=== PATIENT | male | born 1965 | race Caucasian/White ===

== ENCOUNTER → 2023-10-05 11:07 | Outpatient (REF) | payer OTHER, SELFPAY | LOC: RAD 11:07 | PROVIDERS: ATTENDING PHYSICIAN Surgery Vascular Surgery | DX: I73.9 Peripheral vascular disease, unspecified (principal) | CPT/HCPCS: 93922; 93925 ==

== ENCOUNTER 2023-12-06 13:33 | Inpatient (IN) | payer OTHER, SELFPAY ==
[2023-12-06] VITALS (10 sets, daily range): BP systolic 156–186; BP diastolic 77–95
[2023-12-06 08:46] LABS: Urine Albumin Negative (Neg - Trace); Urine Bilirubin 1+ (Negative); Urine Character Clear (Clear); Urine Color Yellow; Urine Glucose 3+ (Negative); Urine Ketone 1+ (Negative); Urine Leukocyte Negative (Negative); Urine Nitrite Negative (Negative); Urine Occult Blood Negative (Negative); Urine Urobilinogen Negative (Neg - 1+)
[2023-12-06 08:48] LABS: % Basophils 0.2 % (0-2); % Eosinophils 0.6 % (0-6); % Immature Granulocytes 0.1 % (0-0.5); % Monocytes 5.7 % (1.7-9.3); % Neutrophils 79.4 % (42.2-75.2); Absolute Eosinophils 0.1 10^3/uL (0-0.7); Absolute Lymphocytes 1.3 10^3/uL (1.2-3.4); Absolute Monocytes 0.5 10^3/uL (0.1-0.6); Absolute Neutrophils 7.4 10^3/uL (1.4-6.5); Hematocrit 45.5 % (39.0-52.0); Hemoglobin 15.6 g/dL (13.0-18.0); Mean Corp Hgb Conc. 34.3 g/dL (33.0-37.0); Mean Corpuscular Hgb 30.4 pg (27.0-31.0); Mean Corpuscular Volume 88.7 fL (80.0-94.0); Mean Platelet Volume 11.1 fL (7.4-10.4); Nucleated Red Blood Cells % 0 % (-); Platelet Count 139 10^3/uL (130-400); Red Blood Cell Count 5.13 10^6/uL (4.70-6.10); White Blood Cell Count 9.3 10^3/uL (4.8-10.8)
[2023-12-06 09:00] LABS: ALT (SGPT) 18 U/L (0-50); AST (SGOT) 29 U/L (17-59); Albumin 4.4 g/dl (3.5-5.0); Alkaline Phosphatase 113 U/L (38-126); Blood Urea Nitrogen 24 mg/dl (9-20); Calcium 9.7 mg/dl (8.4-10.2); Carbon Dioxide 28 mmol/L (22-30); Chloride 104 mmol/L (98-107); Glucose 117 mg/dl (70-99); Potassium 4.3 mmol/L (3.5-5.1); Sodium 140 mmol/L (135-145); eGFR > 60.00
[2023-12-06] MEDS: OXYCONTIN (CONTROLLED RELEASE) 15 MG PO (09:27)
[2023-12-06 09:37] LABS: Lipase 43 U/L (23-300)
[2023-12-06 09:53] LABS: COVID-19 Antigen Negative (Negative)
--- NOTE | 2023-12-06 11:33 | ED.GENMED ---
History of Present Illness
General
Chief Complaint: Weakness
Source: patient
Exam Limitations: none
Time Seen by Provider: 12/06/23 08:05
Travel History
Have you had any contact with someone who has COVID-19?: No
Do you have any symptoms of coronavirus? Fever > 100 degrees, chills, cough, shortness of breath, sore throat, loss of taste or smell, muscle aches, or headache?: No
History of Present Illness
History of Present Illness:
58-year-old male progressive weakness over 3 to 4 days. Severe fatigue. Some cognitive issues. Denies significant cough shortness of breath abdominal pain or other complaints. Does note bilateral increased leg swelling.
Past History
Past History
ED Past Medical History: Arrthythmia (Atrial fib), CAD, CHF, CVA (residual right-sided weakness. Appears to have a thalamic bleed.), HTN, Hypercholesterolemia, Psychiatric (MDD), Other (Cellulitis, Paraplegic, Spinal stenosis, thalamic bleed 2004,
seizure disorder/wheelchair-bound, chronic back pain narcotic dependent) and Other (Receiving palliative care)
ED Past Surgical History: Cardiac (Stent) and Other (Spinal fusion that falled, bone taken from L hip for surg.)
Social History
Tobacco: Former smoker
Alcohol: None
Personal:
Living: with family
Employment: Disabled
Family History
Family History: Negative Diabetes
Review of Systems
Review of Systems
All Other Systems: Not applicable
Constitutional: Denies fever
Respiratory: Reports no symptoms
Cardiac: Reports no symptoms
ABD/GI: Reports no symptoms
Phy Exam
Physical Exam
Physical Exam:
GENERAL: Alert and oriented in no apparent distress. Generally tired and weak appearing
EYE: Orbits normal.
NECK: Supple, no significant adenopathy.
ENT: Pharynx without erythema
CARDIAC:Mildly irregular pacer
LUNGS: Clear breath sounds,normal
ABDOMEN: Soft, without focal tenderness or distention
NEUROLOGICAL: Alert and oriented , lower extremity paraplegia can wiggle toes bilaterally
SKIN: Warm and dry, stasis dermatitis to both lower extremities with possible cellulitis bilaterally
MUSCULOSKELETAL: Significant pitting edema bilaterally
PSYCH: Normal and appropriate interaction.
Course
Orders/Labs/Results
Orders:
Orders
12/06/23 08:01
Electrocardiogram (*1) Urgent
Reason for Study: Fatigue / Weakness
EKG- Treatment ONCE
12/06/23 08:39
CMP [Comprehensive Metabolic Panel] Urgent
Complete Blood Count/With Diff Urgent
Lipase Urgent
Comment: ADD ON
TSH Reflex To Free T4 Urgent
Urinalysis Reflex To Culture Urgent
Date Specimen was Collected: 12/06/23
Time Specimen was Collected: 08:22
12/06/23 08:41
CT Head W/o Iv Contrast Urgent
Comment:
Reason For Exam: Change in mental status
Cardiac Monitoring- Treatment ONCE
IV Insert/Care/Rem.- Treatment PRN
Pulse Ox/cont/shift [RESP] Stat
Quantity: 1
12/06/23 09:19
Add On- LAB Urgent
Tests Added?: tsh reflex t4,lipase
COVID-19 Antigen Urgent
Source: Nasal Swab
Influenza A+B Rapid Molecular Urgent
JYOTSNA Source: Nasal Swab
Specimen Description:
12/06/23 09:20
Oxycodone Controlled Release [Oxycontin (Controlled Release)] 15 mg PO NOW STA
12/06/23 11:30
CXR2 [CR Chest - 2 Views ] Urgent
Comment:
Reason For Exam: cough weak
12/06/23 11:51
CeFAZolin 2 GRAM [Ancef] 2 grams in 10 ml IV NOW
12/06/23 12:17
Blood Culture Q30M
JYOTSNA Source: Blood/Venous
Specimen Description:
12/06/23 12:26
Blood Culture Q30M
JYOTSNA Source: Blood/Venous
Specimen Description:
Abnormal Lab Results
12/06/23
08:39
MPV 11.1 H fL
(7.4-10.4)
Absolute Neuts (auto) 7.4 H 10^3/uL
(1.4-6.5)
Neutrophils % 79.4 H %
(42.2-75.2)
Lymphocytes % 14.0 L %
(20.5-51.1)
BUN 24 H mg/dl
(9-20)
Glucose 117 H mg/dl
(70-99)
Total Bilirubin 2.0 H mg/dl
(0.2-1.3)
Urine Ketones 1+ A
(Negative)
Urine Bilirubin 1+ A
(Negative)
Urine Glucose 3+ A
(Negative)
12/06/23 08:39
12/06/23 08:39
Vital Signs
Initial and Last Documented VS:
Initial Vital Signs
Temp Resp
98.5 F 20
12/06/23 08:09 12/06/23 08:09
Last Documented Vital Signs
Temp Pulse Resp BP Pulse Ox
98.5 F 66 13 186/85 95
12/06/23 08:09 12/06/23 12:30 12/06/23 12:30 12/06/23 12:00 12/06/23 12:30
MDM/Problems Addressed
Differential Diagnosis Includes:
Change in mental status weakness. Only clinical finding is possible cellulitis. Discussed with hospitalist.
*Radiology
Radiology exam reviewed: radiology read reviewed (Old CVA)
*Pulse Oximetry
Patient hypoxic: no
*EKG
Interpreted by ED Provider?: Yes
Interpretation: abnormal
Comparison EKG: no changes
Heart Rate: 70
Rate: normal
Rhythm: a-fib
[place]: left axis deviation
Interval: normal interval
QRS Pattern: right bundle branch block
Ischemia: non-specific ST changes
*Machine Inker Interpretation
Rate: normal
Interpretation: abnormal
Heart Rate: 72
Rhythm: a-fib
*Critical Care Note
Total Time (30-74mins, 75-104mins- exclusive of procedures): Not Applicable
ED Attending Note
-
Portions of this chart may have been created with voice recognition software.� Occasional wrong word or��sound alike� substitutions may have occurred due to the inherent limitations of voice recognition software.
Discharge Plan
Departure
Patient Disposition: Admit
Date of Disposition: 12/06/23
Time of Disposition: 10:24
Presentation/result/management discussed w/ accepting MD/DO: Hospitalist
Discharge Problem:
Change in mental status/weakness, Possible cellulitis, Lower extremity edema
Prescriptions:
No Action
oxycodone 15 MG tablet
15 mg PO Q4H
morphine 30 MG tablet extended release
30 mg PO Q8H
Jardiance 10 mg Tablet
10 mg PO DAILY@1300
furosemide 40 MG tablet
40 mg PO DAILY
cyanocobalamin (vitamin B-12) 1,000 mcg Tablet
1,000 mcg PO DAILY 30 Days Qty: 30 0RF
clopidogrel 75 mg Tablet
75 mg PO DAILY Qty: 30 2RF
Eliquis 5 mg tablet
5 mg PO BID
brinzolamide [Azopt] 1 % Drops,Suspension
1 drp BOTH EYES BID
Theragen Tablet
1 tab PO DAILY
atorvastatin 40 mg tablet
40 mg PO DAILY@1300
metformin 500 mg Tablet Extended Release 24 Hr
500 mg PO QPM Qty: 30 0RF
cholecalciferol (vitamin D3) 50 mcg (2,000 unit) Tablet
50 mcg PO DAILY Qty: 30 0RF
Referrals:
UNKNOWN - PT DOES,NOT KNOW [Family Provider] -
Interventions
Interventions:
*Risk Screen - Suicide Last Done: 12/06/23 08:11
*General Assessment Last Done: 12/06/23 08:11
*Neglect/Abuse Screening Last Done: 12/06/23 08:11
ED- Fall Risk Assessment Last Done: 12/06/23 08:18
ED- Cardiac Assessment Last Done: 12/06/23 08:20
ED- Neurological Assessment Last Done: 12/06/23 08:19
ED- Pulmonary Assessment Last Done: 12/06/23 08:44
Discharge Date and Time
Print Language: ALBANIAN
[2023-12-06] MEDS: ANCEF 10 IV ×2 (12:23→20:02)
[2023-12-06 13:31] LABS: TSH Reflex To Free T4 0.87 uIU/ml (0.47-4.68)
--- NOTE | 2023-12-06 15:10 | WOUNDNOTE ---
R FOOT/2ND TOE (DORSAL)
--- NOTE | 2023-12-06 15:10 | WOUNDNOTE ---
L 2ND TOE (DORSAL)
--- NOTE | 2023-12-06 15:34 | WOUNDNOTE ---
[facility] RN note: Patient admitted with cellulitis. Patient lives at home with his and son. He applies his own knee high Rojas wraps at home. He stated he has a hospital bed without an air mattress at home. He has an electric wheelchair with a cushion
he doesn't like at home.
See H&P for complete history.
PMH: a fib, CAD, CHF, CVA with R sided weakness, HTN, cellulitis, paraplegic, spinal stenosis, seizure disorder, WC bound, chronic back pain narcotic dependent, cardiac stent, failed spinal fusion, former smoker, stasis dermatitis,
lymphedema,08/30/22 bilateral aortoiliac angiogram and balloon dilation, cholecystectomy. 10/05/23 arterial Doppler R YASMANY 1.05, R toe 1.40; L YASMANY .83, L toe .68. 05/23/22 venous ultrasound nonocclusive thrombosis R peroneal vein. Patient on Plavix.
Patient saw Dr. Locke as an outpatient on 10/05/23 whose note mentions lymphedema, continue compression and leg elevation, follow up in 1 year.
Wound Location and type/assessment: Patient admitted with: Bilateral dorsal 2nd toe dry scabbed abrasions (L>R), diffuse erythema le's, L upper joseph dry small scabbed abrasion. +3 LE edema. R pedal pulse palpable. L pedal pulse easily heard via
portable Doppler. Skin on heels blanchable red.
Appetite: fair-good.
Pressure redistribution devices in place: Pieceableax. RN Ann-Marie to coordinate switching bed to a [facility] air bed. Bed tech Juan notified who brought up bed.
Plan: Moisture lotion applied to le's. No sting barrier wipe applied to toe abrasions. Updated Dr. Chinchilla including LE picture who approved skin care, air mattress, soft heel relief boots as tolerated, and bilateral knee high Rojas wraps as tolerated.
Defer to hospitalist if LE venous Doppler study to r/t DVT indicated. Patient on Plavix. Bilateral knee high Rojas wraps and bilateral TruVue lite heel relief boots applied. Bariatric air chair cushion placed under heels/boots. Instructed patient
pressure injury prevention measures.
Updated NARINDER Jacobsen.
Care plan to be updated and will follow as needed.
Note to case management of equipment requested for discharge: VN if not already in place.
Recommend follow up at wound care center if needed upon discharge.
--- NOTE | 2023-12-06 15:43 | CM ---
Patient seen bedside.
IA completed.
Hx CVA, WC bound at baseline independent with all transfers and personal care tasks.
Patient does not drive or work.
Lives with spouse and mother in law.
Patient lives in a 2 story home with ramp to enter, he has a 1st floor set up.
patient has had [facility] in the past and would like to resume.
Patient was in skilled rehab and [facility] in the past.
PCP: unknown
Pharmacy: [facility]
Plan: home with possible VN needs.
[2023-12-06] MEDS: MS CONTIN (EXTENDED RELEASE) 30 MG PO ×2 (17:17→23:01)
[2023-12-06] MEDS: ROXICODONE 15 MG PO ×2 (17:20→21:18)
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
[2023-12-06] MEDS: AZOPT 1% OPHTHALMIC SUSPENSION 1 DROP BOTH EYES (20:01)
[2023-12-06] MEDS: ELIQUIS 5 MG PO (20:01)
[2023-12-07] VITALS (8 sets, daily range): BP systolic 146–197; BP diastolic 77–94
[2023-12-07] MEDS: ROXICODONE 15 MG PO ×6 (01:24→23:53)
[2023-12-07] MEDS: ANCEF 10 IV ×3 (02:50→19:45)
[2023-12-07 07:59] LABS: Hematocrit 43.7 % (39.0-52.0); Mean Corp Hgb Conc. 34.3 g/dL (33.0-37.0); Mean Corpuscular Hgb 30.2 pg (27.0-31.0); Mean Corpuscular Volume 88.1 fL (80.0-94.0); Mean Platelet Volume 11.3 fL (7.4-10.4); Platelet Count 130 10^3/uL (130-400); Red Blood Cell Count 4.96 10^6/uL (4.70-6.10); Red Cell Dist. Width 12.1 % (11.5-14.5); White Blood Cell Count 8.9 10^3/uL (4.8-10.8)
[2023-12-07 08:22] LABS: ALT (SGPT) 13 U/L (0-50); AST (SGOT) 23 U/L (17-59); Albumin 3.6 g/dl (3.5-5.0); Alkaline Phosphatase 105 U/L (38-126); Blood Urea Nitrogen 24 mg/dl (9-20); Calcium 9.1 mg/dl (8.4-10.2); Carbon Dioxide 28 mmol/L (22-30); Chloride 104 mmol/L (98-107); Glucose 97 mg/dl (70-99); Sodium 139 mmol/L (135-145); Total Bilirubin 1.3 mg/dl (0.2-1.3); eGFR > 60.00
[2023-12-07] MEDS: VITAMIN D3 (cholecalciferol) 50 MCG PO (08:58)
[2023-12-07] MEDS: LASIX 40 MG PO (08:58)
[2023-12-07] MEDS: THERAGRAN 1 TABLET PO (08:58)
[2023-12-07] MEDS: PLAVIX 75 MG PO (08:58)
[2023-12-07] MEDS: VITAMIN B-12 1000 MCG PO (08:58)
[2023-12-07] MEDS: AZOPT 1% OPHTHALMIC SUSPENSION 1 DROP BOTH EYES ×2 (08:58→19:45)
[2023-12-07] MEDS: ELIQUIS 5 MG PO ×2 (08:58→19:44)
[2023-12-07] MEDS: MS CONTIN (EXTENDED RELEASE) 30 MG PO ×3 (08:58→23:00)
--- NOTE | 2023-12-07 10:42 | CM ---
Advance directive packet provided to patient.
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
[2023-12-07] MEDS: LIPITOR 40 MG PO (13:15)
[2023-12-07] MEDS: JARDIANCE 10 MG PO (13:15)
[2023-12-08] VITALS (7 sets, daily range): BP systolic 158–182; BP diastolic 84–97
--- NOTE | 2023-12-08 02:38 | PTCARENOTE ---
MANINDER Solis aware of patient`s vitals signs.
[2023-12-08] MEDS: ANCEF 10 IV ×3 (03:56→19:19)
[2023-12-08] MEDS: ROXICODONE 15 MG PO ×3 (03:56→19:18)
[2023-12-08] MEDS: NORVASC 5 MG PO (04:27)
[2023-12-08] MEDS: AZOPT 1% OPHTHALMIC SUSPENSION BOTH EYES ×4 (09:58→19:28)
[2023-12-08] MEDS: ELIQUIS 5 MG PO ×2 (09:58→19:27)
[2023-12-08] MEDS: THERAGRAN 1 TABLET PO (09:59)
[2023-12-08] MEDS: VITAMIN B-12 1000 MCG PO (09:59)
[2023-12-08] MEDS: LASIX 40 MG PO (09:59)
[2023-12-08] MEDS: MS CONTIN (EXTENDED RELEASE) 30 MG PO ×3 (09:59→23:04)
[2023-12-08] MEDS: VITAMIN D3 (cholecalciferol) 50 MCG PO (09:59)
[2023-12-08] MEDS: PLAVIX 75 MG PO (09:59)
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
[2023-12-08] MEDS: SENOKOT-S 1 TABLET PO (11:52)
[2023-12-08] MEDS: JARDIANCE 10 MG PO (12:50)
[2023-12-08] MEDS: LIPITOR 40 MG PO (12:50)
--- NOTE | 2023-12-08 15:09 | CM ---
Patient seen bedside.
patient still cannot remember MD name, but is in Dr Brar office.
Patient stated he feels very weak and would like PT/OT.
Patient unsure if he was with [facility], TC to [facility] they closed him in October.
Will await PT/OT evals for recommendations.
Will place referral for [facility] once recommendations are reviewed.
Plan: possible Home with VN ([facility]), will need van home.
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
[2023-12-08 17:06] LABS: Ferritin 76.7 ng/ml (17.9-464.0)
[2023-12-08 17:37] LABS: Folate 10.6 ng/ml (2.76-20); Vitamin B12 868 pg/ml (239-931)
[2023-12-08] MEDS: ELIQUIS PO (19:18)
[2023-12-09] VITALS (8 sets, daily range): BP systolic 129–166; BP diastolic 58–87; PULSE 71; O2SAT 96
[2023-12-09] MEDS: ANCEF 10 IV ×3 (03:20→19:25)
[2023-12-09] MEDS: ROXICODONE 15 MG PO ×4 (03:27→22:15)
[2023-12-09] MEDS: TYLENOL 650 MG PO ×2 (04:36→17:35)
[2023-12-09] MEDS: MS CONTIN (EXTENDED RELEASE) 30 MG PO ×3 (08:45→23:18)
[2023-12-09] MEDS: THERAGRAN 1 TABLET PO (08:45)
[2023-12-09] MEDS: ELIQUIS 5 MG PO ×2 (08:45→19:25)
[2023-12-09] MEDS: VITAMIN B-12 1000 MCG PO (08:45)
[2023-12-09] MEDS: AZOPT 1% OPHTHALMIC SUSPENSION BOTH EYES ×3 (08:45→19:52)
[2023-12-09] MEDS: PLAVIX 75 MG PO (08:45)
[2023-12-09] MEDS: VITAMIN D3 (cholecalciferol) 50 MCG PO (08:45)
[2023-12-09] MEDS: NORVASC 5 MG PO (08:45)
[2023-12-09] MEDS: LASIX 40 MG PO (08:45)
[2023-12-09] MEDS: LIPITOR 40 MG PO (12:05)
[2023-12-09] MEDS: JARDIANCE 10 MG PO (12:06)
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
--- NOTE | 2023-12-09 15:54 | CM ---
Patient seen bedside, CM discussed PT/OT recommendations of SNF. Patient agreeable to SNF, requesting referrals to locals facilities. CM will send referrals in [facility]. CM will continue to follow for discharge planning needs.
Plan; SNF pending accepting facility, will require auth.
[2023-12-10] MEDS: ROXICODONE 15 MG PO ×5 (02:15→19:58)
[2023-12-10] MEDS: ANCEF 10 IV ×3 (03:46→19:55)
[2023-12-10 07:00] LABS: % Basophils 0.4 % (0-2); % Eosinophils 1.8 % (0-6); % Immature Granulocytes 0.3 % (0-0.5); % Lymphocytes 27.5 % (20.5-51.1); % Monocytes 8.2 % (1.7-9.3); % Neutrophils 61.8 % (42.2-75.2); Absolute Eosinophils 0.2 10^3/uL (0-0.7); Absolute Lymphocytes 3.1 10^3/uL (1.2-3.4); Absolute Monocytes 0.9 10^3/uL (0.1-0.6); Absolute Neutrophils 7.1 10^3/uL (1.4-6.5); Hematocrit 45.5 % (39.0-52.0); Hemoglobin 15.2 g/dL (13.0-18.0); Mean Corp Hgb Conc. 33.4 g/dL (33.0-37.0); Mean Corpuscular Hgb 30.2 pg (27.0-31.0); Mean Corpuscular Volume 90.5 fL (80.0-94.0); Mean Platelet Volume 11.5 fL (7.4-10.4); Nucleated Red Blood Cells % 0 % (-); Platelet Count 127 10^3/uL (130-400); Red Blood Cell Count 5.03 10^6/uL (4.70-6.10); Red Cell Dist. Width 12.2 % (11.5-14.5); White Blood Cell Count 11.4 10^3/uL (4.8-10.8)
[2023-12-10 07:47] VITALS: BP 157/80
[2023-12-10 08:03] LABS: Blood Urea Nitrogen 25 mg/dl (9-20); Carbon Dioxide 28 mmol/L (22-30); Chloride 102 mmol/L (98-107); Glucose 118 mg/dl (70-99); Potassium 3.5 mmol/L (3.5-5.1); Sodium 137 mmol/L (135-145); eGFR > 60.00
[2023-12-10] MEDS: VITAMIN B-12 1000 MCG PO (09:36)
[2023-12-10] MEDS: THERAGRAN 1 TABLET PO (09:37)
[2023-12-10] MEDS: NORVASC 5 MG PO (09:37)
[2023-12-10] MEDS: PLAVIX 75 MG PO (09:37)
[2023-12-10] MEDS: ELIQUIS 5 MG PO ×2 (09:37→19:55)
[2023-12-10] MEDS: VITAMIN D3 (cholecalciferol) 50 MCG PO (09:38)
[2023-12-10] MEDS: LASIX 40 MG PO (09:40)
[2023-12-10] MEDS: MS CONTIN (EXTENDED RELEASE) 30 MG PO ×3 (09:40→23:41)
[2023-12-10] MEDS: AZOPT 1% OPHTHALMIC SUSPENSION BOTH EYES ×2 (09:42→19:55)
[2023-12-10 12:21] LABS: HCO3 31.3 mmol/L (21-28); O2 Saturation % 98.6 % (94-98); PCO2 42 mmHg (35-48); PO2 85 mmHg (83-108); pH 7.48 (7.35-7.45)
[2023-12-10] MEDS: LIPITOR 40 MG PO (12:47)
[2023-12-10] MEDS: FLUSH (NSS) 1 FLUSH IV (12:48)
[2023-12-10] MEDS: JARDIANCE 10 MG PO (12:52)
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
[2023-12-10 15:46] VITALS: BP 130/64
--- NOTE | 2023-12-10 16:00 | CM ---
CM reviewed chart, awaiting response from SNF regarding bed availability. Pulm consulted. CM will continue to follow for discharge planning needs.
Plan; SNF pending accepting facility, will require auth when bed available.
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
[2023-12-10 23:58] VITALS: BP 158/70
[2023-12-11] MEDS: ANCEF 10 IV ×3 (04:04→20:32)
[2023-12-11 07:05] VITALS: BP 148/96
[2023-12-11] MEDS: AZOPT 1% OPHTHALMIC SUSPENSION BOTH EYES ×2 (09:07→20:33)
[2023-12-11] MEDS: ELIQUIS 5 MG PO ×2 (09:11→20:31)
[2023-12-11] MEDS: VITAMIN D3 (cholecalciferol) 50 MCG PO (09:11)
[2023-12-11] MEDS: THERAGRAN 1 TABLET PO (09:12)
[2023-12-11] MEDS: NORVASC 5 MG PO (09:12)
[2023-12-11] MEDS: VITAMIN B-12 1000 MCG PO (09:12)
[2023-12-11] MEDS: PLAVIX 75 MG PO (09:12)
[2023-12-11] MEDS: LASIX 40 MG PO (09:21)
[2023-12-11] MEDS: ROXICODONE 15 MG PO ×3 (09:22→18:22)
[2023-12-11] MEDS: MS CONTIN (EXTENDED RELEASE) 30 MG PO ×3 (09:22→23:07)
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
[2023-12-11] MEDS: JARDIANCE 10 MG PO (12:26)
[2023-12-11] MEDS: LIPITOR 40 MG PO (12:26)
--- NOTE | 2023-12-11 12:37 | CM ---
Patient seen bedside.
Discussed skilled rehab options and asked for additional options.
Additional referrals for skilled rehab sent.
Patient will require insurance authorization.
Plan: skilled rehab once bed available and authorization received.
[2023-12-11] MEDS: FLUSH (NSS) 1 FLUSH IV (14:05)
[2023-12-11 15:05] VITALS: BP 152/77
[2023-12-11 23:00] VITALS: BP 113/68
[2023-12-11] MEDS: TYLENOL 650 MG PO (23:08)
[2023-12-12] MEDS: ANCEF 10 IV ×3 (03:38→20:46)
[2023-12-12] MEDS: ROXICODONE 15 MG PO ×3 (03:42→20:59)
[2023-12-12 07:46] VITALS: BP 144/80
[2023-12-12] MEDS: AZOPT 1% OPHTHALMIC SUSPENSION BOTH EYES ×2 (08:33→20:55)
[2023-12-12] MEDS: MS CONTIN (EXTENDED RELEASE) 30 MG PO ×3 (08:33→23:25)
[2023-12-12] MEDS: PLAVIX 75 MG PO (08:33)
[2023-12-12] MEDS: ELIQUIS 5 MG PO ×2 (08:33→20:41)
[2023-12-12] MEDS: VITAMIN D3 (cholecalciferol) 50 MCG PO (08:34)
[2023-12-12] MEDS: VITAMIN B-12 1000 MCG PO (08:34)
[2023-12-12] MEDS: NORVASC 5 MG PO (08:34)
[2023-12-12] MEDS: LASIX 40 MG PO (08:34)
[2023-12-12] MEDS: THERAGRAN 1 TABLET PO (08:34)
--- NOTE | 2023-12-12 11:11 | CM ---
Addendum entered by Audra Cantu 12/12/23 15:48:
Patient now declining skilled rehab, would prefer home with VN. [facility]
Patient stated he has a friend that will transport home.
Addendum entered by Audra Cantu 12/12/23 12:02:
[facility] [phone], spoke with Angelia
Initiated authorization
Pended reference # [id number]
clinicals faxed to [phone]
to check status call [phone]
Plan: [facility] once auth obtained.
Addendum entered by Audra Cantu 12/12/23 11:26:
No beds available at [facility].
Bed available at [facility], patient declined.
Will initiate auth with [facility]
Facility NPI#[id number]
[facility] NPI# [id number]
Original Note:
TC to Liaison for [facility], patient accepted for admission.
Discussed with patient he would like to know if any beds available at [facility], CM reached out to liaison and await TCB.
Patient will require ambulance transport.
Patient will require insurance authorization.
Plan: skilled rehab once insurance authorization obtained.
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
[2023-12-12] MEDS: LIPITOR 40 MG PO (13:41)
[2023-12-12] MEDS: JARDIANCE 10 MG PO (13:41)
--- NOTE | 2023-12-12 14:45 | PN.CDI ---
CDI
- -
CDI:
Physician Documentation Request
Admit Date: 12/06/23 13:33
Dear Doctor Zita,
Please review the following and provide your response in the progress notes.
Clinical Indicators:
12/05 Pt admitted with bilateral cellulitis
12/11 PN:'NIDDM- glu 97-117. Continue Jardiance.'
Additional clinical indicators:
Please clarify the relationship, if any, between these conditions:
Yes, bilateral cellulitis is enhanced by/contributed by/associated with/due to diabetes.
No, bilateral cellulitis is not enhanced by/ contributed by/associated with/due to diabetes but it is due to ___. (Please specify)
Other ( please specify)
Use of terms such as suspected, likely, concern for, or probable (associated with a specific diagnosis that is being evaluated, monitored, or treated as if it exists) are acceptable and can be coded in the inpatient setting, when documented at the
time of discharge.
Thank you,
Yojana Bob RN, BSN
CDI Specialist
Available via [facility]
Please use your independent medical judgment in providing your response.
[2023-12-12 15:23] VITALS: BP 111/63
--- NOTE | 2023-12-12 16:26 | VNURNOTE ---
Spoke with patient over the phone. Explained [facility] services, frequency, homebound status. Patient reports his PCP is through [facility]. Referral updated in [facility].
[2023-12-12] MEDS: SENOKOT-S 1 TABLET PO (20:59)
[2023-12-12 23:27] VITALS: BP 139/73
[2023-12-13] MEDS: TYLENOL 650 MG PO (00:04)
[2023-12-13] MEDS: ROXICODONE 15 MG PO ×2 (01:31→12:28)
[2023-12-13] MEDS: ANCEF 10 IV ×2 (04:39→12:17)
[2023-12-13 08:00] VITALS: BP 137/74
[2023-12-13] MEDS: THERAGRAN 1 TABLET PO (10:01)
[2023-12-13] MEDS: LASIX 40 MG PO (10:01)
[2023-12-13] MEDS: PLAVIX 75 MG PO (10:03)
[2023-12-13] MEDS: VITAMIN B-12 1000 MCG PO (10:03)
[2023-12-13] MEDS: ELIQUIS 5 MG PO (10:03)
[2023-12-13] MEDS: NORVASC 5 MG PO (10:03)
[2023-12-13] MEDS: VITAMIN D3 (cholecalciferol) 50 MCG PO (10:04)
[2023-12-13] MEDS: AZOPT 1% OPHTHALMIC SUSPENSION BOTH EYES ×2 (10:04→10:14)
[2023-12-13] MEDS: MS CONTIN (EXTENDED RELEASE) 30 MG PO (10:05)
--- NOTE | 2023-12-13 10:54 | CM ---
Addendum entered by Audra Cantu 12/13/23 14:23:
Patient for d/c home today.
Patient will require WC van.
Plan: home with [facility]
Original Note:
Patient seen bedside.
Per patient the plan is home with [facility].
patient spoke with [facility] last pm.
Per patient he will speak with his friend at 2 pm re a ride.
Plan: home with [facility], CM will f/u re transport.
[2023-12-13 12:12] VITALS: BP 153/75; PULSE 61; O2SAT 98
[2023-12-13 12:16] VITALS: BP 153/75; PULSE 66; O2SAT 98
[2023-12-13] MEDS: LIPITOR 40 MG PO (12:18)
[2023-12-13] MEDS: JARDIANCE 10 MG PO (12:18)
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
[2023-12-13 15:32] VITALS: BP 111/58
== END 2023-12-13 15:28 | disposition home health service (06) | DRG 637 ==
LOC: 4 WEST ACU 13:33
PROVIDERS: ADMITTING PHYSICIAN Internal Medicine; ATTENDING PHYSICIAN Internal Medicine; CONSULT PHYSICIAN Internal Medicine Critical Care Medicine; CONSULT PHYSICIAN Student in an Organized Health Care Education/Training Program; EMERGENCY PHYSICIAN Emergency Medicine
DX: E11.628 Type 2 diabetes mellitus with other skin complications (principal); G92.8 Other toxic encephalopathy; F11.20 Opioid dependence, uncomplicated; I50.30 Unspecified diastolic (congestive) heart failure; G82.20 Paraplegia, unspecified; I69.351 Hemiplegia and hemiparesis following cerebral infarction affecting right dominant side; E11.52 Type 2 diabetes mellitus with diabetic peripheral angiopathy with gangrene; L03.116 Cellulitis of left lower limb; L03.115 Cellulitis of right lower limb; R53.83 Other fatigue; E78.00 Pure hypercholesterolemia, unspecified; G89.4 Chronic pain syndrome; I11.0 Hypertensive heart disease with heart failure; M48.00 Spinal stenosis, site unspecified; G40.909 Epilepsy, unspecified, not intractable, without status epilepticus; F32.9 Major depressive disorder, single episode, unspecified; M54.9 Dorsalgia, unspecified; R41.89 Other symptoms and signs involving cognitive functions and awareness; I25.10 Atherosclerotic heart disease of native coronary artery without angina pectoris; R53.82 Chronic fatigue, unspecified; G47.33 Obstructive sleep apnea (adult) (pediatric); I48.0 Paroxysmal atrial fibrillation; I45.10 Unspecified right bundle-branch block; Y92.410 Unspecified street and highway as the place of occurrence of the external cause; V89.2XXS Person injured in unspecified motor-vehicle accident, traffic, sequela; Z79.02 Long term (current) use of antithrombotics/antiplatelets; Z87.891 Personal history of nicotine dependence; Z11.52 Encounter for screening for COVID-19; Z99.3 Dependence on wheelchair; Z95.5 Presence of coronary angioplasty implant and graft; Z98.1 Arthrodesis status; Z79.84 Long term (current) use of oral hypoglycemic drugs; Z79.01 Long term (current) use of anticoagulants; Z74.01 Bed confinement status
CPT/HCPCS: 36600; 70450; 71046; 80048; 80053; 81003; 82607; 82728; 82746; 82805; 83690; 84443; 85025; 85027; 87040; 87070; 87502; 87811; 93005; 94760; 96374; 97163; 97167; 97530; 97535; 99285

== ENCOUNTER 2025-03-18 09:00 | Emergency (ER) | payer OTHER, SELFPAY ==
[2025-03-18 09:27] LABS: Hematocrit 43.7 % (39.0-52.0); Hemoglobin 14.6 g/dL (13.0-18.0); Mean Corp Hgb Conc. 33.4 g/dL (33.0-37.0); Mean Corpuscular Volume 90.5 fL (80.0-94.0); Nucleated Red Blood Cells % 0 % (-); Platelet Count 142 10^3/uL (130-400); Red Cell Dist. Width 12.4 % (11.5-14.5)
[2025-03-18 09:33] LABS: ALT (SGPT) 13 U/L (0-50); AST (SGOT) 15 U/L (17-59); Albumin 3.9 g/dl (3.5-5.0); Alkaline Phosphatase 69 U/L (38-126); Blood Urea Nitrogen 27 mg/dl (9-20); Calcium 8.8 mg/dl (8.4-10.2); Carbon Dioxide 31 mmol/L (22-30); Chloride 104 mmol/L (98-107); Glucose 181 mg/dl (70-99); Potassium 4.0 mmol/L (3.5-5.1); Sodium 141 mmol/L (135-145); Total Protein 6.3 g/dl (6.3-8.2); eGFR > 60.00
[2025-03-18 09:44] LABS: Troponin I < 0.012 ng/ml
[2025-03-18 09:46] VITALS: BP 174/82
[2025-03-18 10:53] VITALS: BMI 45.8
--- NOTE | 2025-03-18 11:00 | ED.GENMED ---
History of Present Illness
<Angel Mason PA-C - Last Filed: 03/18/25 14:25>
General
Chief Complaint: Dizziness
Source: patient
Exam Limitations: none
Time Seen by Provider: 03/18/25 10:18
History of Present Illness
History of Present Illness:
59-year-old male presents complaining of shortness of breath and abdominal pain. He has a history of A-fib, CHF, cerebral hemorrhage, on Eliquis. He notes slightly more swelling to the lower extremities bilaterally. He was having trouble laying
flat. He also admits prior to 2 days ago he was having difficulty moving his bowels. He has however moved his bowels over the past 2 days. No vomiting. No chest pain. No other complaints at this time
Past History
<ERIN Solorio Last Filed: 03/18/25 14:25>
Past History
ED Past Medical History: Arrthythmia (Atrial fib), CAD, CHF, CVA (residual right-sided weakness. Appears to have a thalamic bleed.), HTN, Hypercholesterolemia, Psychiatric (MDD), Other (Cellulitis, Paraplegic, Spinal stenosis, thalamic bleed 2004,
seizure disorder/wheelchair-bound, chronic back pain narcotic dependent) and Other (Receiving palliative care)
ED Past Surgical History: Cardiac (Stent) and Other (Spinal fusion that falled, bone taken from L hip for surg.)
Social History
Tobacco: Former smoker
Alcohol: None
Personal:
Living: with family
Employment: Disabled
Family History
Family History: Negative Diabetes
Phy Exam
<ERIN Solorio Last Filed: 03/18/25 14:25>
Physical Exam
Physical Exam:
General: Well-appearing male no acute respiratory distress
HEENT: Normocephalic atraumatic
Heart: Regular rate and rhythm
Lungs: Clear no wheeze
Extremities pitting edema bilateral lower extremities
Skin: Erythema to both anterior shins likely consistent with chronic edema and venous stasis
Course
<Angel Mason PA-C - Last Filed: 03/18/25 14:25>
Orders/Labs/Results
Orders:
Orders
03/18/25 09:09
ECG [Electrocardiogram (*1)] Urgent
Reason for Study: Vertigo / Dizzy
EKG- Treatment ONCE
03/18/25 09:14
Complete Blood Count/With Diff Urgent
Comprehensive Metabolic Panel Urgent
NT-proBNP Urgent
Comment: PRO BNP ADDED ON BY FLOOR 11AM 03-18-25
Troponin I Urgent
03/18/25 10:40
CR Obstruct Series W/pa Chest Urgent
Comment:
Reason For Exam: sob, abdominal pain
03/18/25 11:03
Add On- LAB Urgent
Tests Added?: pro bnp
Abnormal Lab Results
03/18/25
09:14
MPV 10.6 H fL
(7.4-10.4)
Absolute Neuts (auto) 7.0 H 10^3/uL
(1.4-6.5)
Lymphocytes % 17.3 L %
(20.5-51.1)
Carbon Dioxide 31 H mmol/L
(22-30)
BUN 27 H mg/dl
(9-20)
Creatinine 0.6 L mg/dL
(0.7-1.3)
Glucose 181 H mg/dl
(70-99)
AST 15 L U/L
(17-59)
03/18/25 09:14
03/18/25 09:14
Vital Signs
Initial and Last Documented VS:
Initial Vital Signs
Temp Pulse Resp BP Pulse Ox
36.8 C 62 20 174/82 98
03/18/25 09:46 03/18/25 09:46 03/18/25 09:46 03/18/25 09:46 03/18/25 09:46
Last Documented Vital Signs
Temp Pulse Resp BP Pulse Ox
36.8 C 60 18 174/82 98
03/18/25 09:46 03/18/25 11:00 03/18/25 11:00 03/18/25 09:46 03/18/25 11:03
<Jaycee Hernandez PA-C - Last Filed: 03/18/25 15:41>
Orders/Labs/Results
Orders:
Orders
03/18/25 09:09
ECG [Electrocardiogram (*1)] Urgent
Reason for Study: Vertigo / Dizzy
EKG- Treatment ONCE
03/18/25 09:14
Complete Blood Count/With Diff Urgent
Comprehensive Metabolic Panel Urgent
NT-proBNP Urgent
Comment: PRO BNP ADDED ON BY FLOOR 11AM 03-18-25
Troponin I Urgent
03/18/25 10:40
CR Obstruct Series W/pa Chest Urgent
Comment:
Reason For Exam: sob, abdominal pain
03/18/25 11:03
Add On- LAB Urgent
Tests Added?: pro bnp
Abnormal Lab Results
03/18/25
09:14
MPV 10.6 H fL
(7.4-10.4)
Absolute Neuts (auto) 7.0 H 10^3/uL
(1.4-6.5)
Lymphocytes % 17.3 L %
(20.5-51.1)
Carbon Dioxide 31 H mmol/L
(22-30)
BUN 27 H mg/dl
(9-20)
Creatinine 0.6 L mg/dL
(0.7-1.3)
Glucose 181 H mg/dl
(70-99)
AST 15 L U/L
(17-59)
03/18/25 09:14
03/18/25 09:14
Vital Signs
Initial and Last Documented VS:
Initial Vital Signs
Temp Pulse Resp BP Pulse Ox
36.8 C 62 20 174/82 98
03/18/25 09:46 03/18/25 09:46 03/18/25 09:46 03/18/25 09:46 03/18/25 09:46
Last Documented Vital Signs
Temp Pulse Resp BP Pulse Ox
36.8 C 60 18 174/82 98
03/18/25 09:46 03/18/25 11:00 03/18/25 11:00 03/18/25 09:46 03/18/25 11:03
<Angel Mason PA-C - Last Filed: 03/18/25 14:25>
MDM/Problems Addressed
Differential Diagnosis Includes:
Abdominal pain and shortness of breath. Recent history of constipation. Consider constipation versus heart failure. Unlikely to be DVT secondary to anticoagulated state. Obstruction series pending. Labs reviewed through triage
EKG shows atrial fibrillation with a pacemaker.
<Angel Mason PA-C - Last Filed: 03/18/25 14:25>
*Pulse Oximetry
SaO2: 98
Oxygen Mode of Delivery: Room air
Patient hypoxic: no
*Critical Care Note
Total Time (30-74mins, 75-104mins- exclusive of procedures): Not Applicable
<Jaycee Hernandez PA-C - Last Filed: 03/18/25 15:41>
Comment
Comment:
03/18/2025 1537 PM
I was called by the nurse to to speak with this patient who had already been discharged by previous provider who is no longer in the department. I had not been aware of this patient but did review the chart and speak with him. He says he presents
with generalized abdominal pain in setting of constipation and chronic opiate use and says he was constipated for 2 days and then used a stool softener and did move his bowels yesterday and today but is still having some discomfort. He says he is
not really concerned about being short of breath, dizzy or having any leg edema, his legs actually look better to him. His workup revealed a slightly elevated BNP, patient says he is compliant with his Lasix and he is not up on his weight, chest
x-ray is not really concerning for pulmonary edemabut his abdomen x-ray does look like he has full of stool. Patient says he just wanted an explanation for why he was in pain. He feels reassured at this time but I did offer him a CT of his abdomen
pelvis, that I would take over and order imaging for the belly pain however he would declined at this time and like to go home trying the MiraLAX. He is going to call his son for a ride
<Angel Mason PA-C - Last Filed: 03/18/25 14:25>
Update Note
Update Note:
Obstruction series negative for acute finding. Vital signs remained stable. BNP slightly elevated but has been higher in the past. No respiratory distress here. Abdomen exam is benign. No indication for admission will recommend he follow-up
with his
ED Attending Note
<Angel Mason PA-C - Last Filed: 03/18/25 14:25>
-
Portions of this chart may have been created with voice recognition software.� Occasional wrong word or��sound alike� substitutions may have occurred due to the inherent limitations of voice recognition software.
Discharge Plan
Departure
Patient Disposition: Home (Routine Discharge)
Date of Disposition: 03/18/25
Time of Disposition: 14:22
Patient with high blood pressure during this ER visit?: No
Discharge Problem:
Abdominal pain
Instructions: Constipation in adults - ED discharge instructions
Prescriptions:
No Action
oxycodone 15 MG tablet
15 mg PO Q4H
morphine 30 MG tablet extended release
30 mg PO Q8H
Jardiance 10 mg Tablet
10 mg PO DAILY@1300
furosemide 40 MG tablet
40 mg PO DAILY
cyanocobalamin (vitamin B-12) 1,000 mcg Tablet
1,000 mcg PO DAILY 30 Days Qty: 30 0RF
clopidogrel 75 mg Tablet
75 mg PO DAILY Qty: 30 2RF
Eliquis 5 mg tablet
5 mg PO BID
brinzolamide [Azopt] 1 % Drops,Suspension
1 drp BOTH EYES BID
therapeutic multivitamin Tablet
1 tab PO DAILY
atorvastatin 40 mg tablet
40 mg PO DAILY@1300
cephalexin 500 mg capsule
500 mg PO Q6H 3 Days Qty: 12 0RF
metformin 500 mg Tablet Extended Release 24 Hr
500 mg PO QPM Qty: 30 0RF
cholecalciferol (vitamin D3) 50 mcg (2,000 unit) Tablet
50 mcg PO DAILY Qty: 30 0RF
Referrals:
UNKNOWN - PT DOES,NOT KNOW [Family Provider]
Activity Restrictions/Additional Instructions:
Continue current medication regimen. Return here for worsening symptoms otherwise follow-up with your digital data analyst
Interventions
Interventions:
*Risk Screen - Suicide Last Done: 03/18/25 09:10
*General Assessment Last Done: 03/18/25 09:10
*Neglect/Abuse Screening Last Done: 03/18/25 10:53
*ED COVID-19 Vaccine History Last Done: 03/18/25 10:53
*Nursing Disposition Last Done: 03/18/25 14:56
ED- Neurological Assessment Last Done: 03/18/25 10:56
ED- Cardiac Assessment Last Done: 03/18/25 10:53
ED Swallowing Screen Last Done: 03/18/25 10:56
Discharge Date and Time
Discharge Date/Time: 03/18/25 14:59
Print Language: MALAGASY
== END 2025-03-18 14:59 | disposition home or self-care (01) ==
LOC: EMR 09:00
PROVIDERS: EMERGENCY PHYSICIAN Student in an Organized Health Care Education/Training Program
DX: R10.9 Unspecified abdominal pain (principal); K59.00 Constipation, unspecified; I25.10 Atherosclerotic heart disease of native coronary artery without angina pectoris; I48.91 Unspecified atrial fibrillation; I11.0 Hypertensive heart disease with heart failure; I50.9 Heart failure, unspecified; E78.00 Pure hypercholesterolemia, unspecified; I69.351 Hemiplegia and hemiparesis following cerebral infarction affecting right dominant side; G40.909 Epilepsy, unspecified, not intractable, without status epilepticus; F32.9 Major depressive disorder, single episode, unspecified; M48.00 Spinal stenosis, site unspecified; M54.9 Dorsalgia, unspecified; G89.29 Other chronic pain; Z79.01 Long term (current) use of anticoagulants; Z79.02 Long term (current) use of antithrombotics/antiplatelets; Z79.84 Long term (current) use of oral hypoglycemic drugs; Z79.891 Long term (current) use of opiate analgesic; Z95.5 Presence of coronary angioplasty implant and graft; Z95.0 Presence of cardiac pacemaker; Z99.3 Dependence on wheelchair; Z87.891 Personal history of nicotine dependence; Z98.1 Arthrodesis status
CPT/HCPCS: 99284; 74022; 80053; 83880; 84484; 85025; 93005

== ENCOUNTER 2025-04-04 09:04 | Inpatient (IN) | payer OTHER, SELFPAY ==
[2025-03-31] VITALS (8 sets, daily range): BP systolic 116–175; BP diastolic 54–98; BMI 44.3; BMI 42.0
--- NOTE | 2025-03-31 16:15 | ED.GENMED ---
History of Present Illness
General
Chief Complaint: Change in Mental Status
Source: patient and previous hospital records
Exam Limitations: none
Time Seen by Provider: 03/31/25 15:53
Nursing documentation reviewed up to this point in time: agreed with except (Mental status clear to my evaluation)
History of Present Illness
History of Present Illness:
59-year-old male prior spinal cord injury 20 years ago, fell out of his wheelchair 2 weeks ago has had some pain in his back, seen here at [facility] admitted discharged, went to [facility] admitted discharged today his son found him with some
bleeding on his right lower extremity brought to the ER for evaluation here he is awake alert and oriented, states he has some pain in his back since the fall he has got some bleeding from his second toe on the right, partially avulsed nail, has a
scab on his right knee which looks old,
Past History
Past History
ED Past Medical History: Arrthythmia (Atrial fib), CAD, CHF, CVA (residual right-sided weakness. Appears to have a thalamic bleed.), HTN, Hypercholesterolemia, Psychiatric (MDD), Other (Cellulitis, Paraplegic, Spinal stenosis, thalamic bleed 2004,
seizure disorder/wheelchair-bound, chronic back pain narcotic dependent) and Other (Receiving palliative care)
ED Past Surgical History: Cardiac (Stent) and Other (Spinal fusion that falled, bone taken from L hip for surg.)
Social History
Tobacco: Former smoker
Alcohol: None
Personal:
Living: with family
Employment: Disabled
Family History
Family History: Negative Diabetes
Phy Exam
Physical Exam
Physical Exam:
Physical Exam
General: Nontoxic chronically ill-appearing male no overt signs of head or neck trauma
Neck: No tongue bite
Heart: Irregular
Lungs: no acute respiratory distress. clear bilaterally
Abdomen: Nontender
Neuro: alert and oriented. Lower extremity weakness
Skin: no rash
Psychiatric: Disheveled cooperative
Extremities: Edema venous stasis changes with erythema avulsion second nail on the right foot
Course
Orders/Labs/Results
Orders:
Orders
03/31/25 Dinner
Regular
At Your Request: Limited Participation
03/31/25 16:04
Electrocardiogram (*1) Urgent
Reason for Study: Other
Other Reason for Exam: trauma
Cardiac Monitoring- Treatment ONCE
EKG- Treatment ONCE
Foot, Right 3 View [CR Foot - Right Min 3 Views] Urgent
Comment:
Reason For Exam: trauma
03/31/25 16:05
CT Cervical Spine W/o Iv Contr Urgent
Comment:
Reason For Exam: fall
CT Head W/o Iv Contrast Urgent
Comment:
Reason For Exam: fall
03/31/25 16:32
Complete Blood Count/With Diff Urgent
Comprehensive Metabolic Panel Urgent
03/31/25 16:59
Oxycodone [Roxicodone] 15 mg PO NOW STA
03/31/25 18:11
Case Management Consult ONCE
Case Management Consult: Discharge Planning
Straight cath- Treatment ONCE
Physical Therapy Consult [Pt Eval And Treat] Urgent
Activity Level: Out of Bed-Early Mobility
03/31/25 18:34
Urinalysis Reflex To Culture Urgent
Date Specimen was Collected: 03/31/25
Time Specimen was Collected: 18:14
Urine Microscopic Reflex Cult Urgent
Urine Culture Urgent
JYOTSNA Source: U
Specimen Description:
Date Specimen was Collected: 03/31/25
Time Specimen was Collected: 18:14
03/31/25 18:42
Morphine Sulfate [Morphine Oral Solution] 30 mg PO NOW STA
03/31/25 19:50
Admit/Transfer Patient As Directed
Co-Sign Provider:
Level of Care: Observation services
Assign to:: Medical/Surgical
Physician / Group: Margarita Choi
Diagnosis: chronic pain, back pain, rigth 2nd toe partially avulsed nail
03/31/25 19:51
PRN Pain Medication Management As Directed
May give lesser potent ordered pain med per pt: Yes
preference::
Protocol:: Medication orders for pain may be administered in a
manner that supports deferring to patient preference
when the pt is:
- Requesting an ordered lesser potent pain medication.
Least to most potent pain medications are defined
as: acetaminophen < NSAID < tramadol < opioids
(morphine, oxycodone, hydromorphone).
- Requesting a lesser dose of the same medication IF
ORDERED.
- Requesting a less intrusive route of administration
if both routes are prescribed by the provider (PO <
IV).
03/31/25 19:52
Code Status As Directed
Resuscitation Status: Full Code
03/31/25 21:22
Acetaminophen [Tylenol] 650 mg PO Q4HPRN PRN
Docusate W/Senna [Senokot-S] 1 tablet PO BIDPRN PRN
Oxycodone [Roxicodone] 15 mg PO Q4HPRN PRN severe pains
Polyethylene Glycol Powder [Miralax] 17 grams PO DAILYPRN PRN
03/31/25 21:22
Activity As Directed
Activity Level: With Assistance
Bladder Scan As Directed
Follow Bladder Retention/Intermittent Cath Algorithm?: Yes
PRN if no void in __ hours: 6
Frequency: Per Retention Algorithm
If Bladder Scan Result >: 400
then:: Straight cath
Records Request [Obtain Records] As Directed
Dates of Information to be Released: 03/2025
Type of Information Requested: Other
If Other, list type of info requested: hospitalization and workup s/p fall 03/2025
Straight Cath As Directed
Frequency: Per Retention Algorithm
Additional Instructions: straight cath as needed per acute urinary retention algorithm for 24 hrs
Additional Instructions: for bladder scan greater than 400 mL
Vital Signs As Directed
Frequency: Per unit guidelines
Weight As Directed
Frequency: Once
Comment: on admission
03/31/25 21:45
Apixaban [Eliquis] 5 mg PO BID
04/01/25 04:00
Morphine Sulfate Extended Rel. [Ms Contin (Extended Release)] 30 mg PO Q8H
04/01/25 08:00
Furosemide [Lasix] 40 mg PO DAILY
04/01/25 08:07
Basic Metabolic Panel IN AM
Complete Blood Count/No Diff IN AM
04/01/25 13:00
Dapagliflozin [Farxiga] 10 mg PO DAILY@1300
04/01/25 18:00
Atorvastatin [Lipitor] 40 mg PO QPM
Abnormal Lab Results
03/31/25 03/31/25
16:32 18:34
WBC 11.1 H 10^3/uL
(4.8-10.8)
RBC 4.65 L 10^6/uL
(4.70-6.10)
MPV 11.4 H fL
(7.4-10.4)
Absolute Neuts (auto) 8.2 H 10^3/uL
(1.4-6.5)
Absolute Monos (auto) 0.9 H 10^3/uL
(0.1-0.6)
Lymphocytes % 14.3 L %
(20.5-51.1)
Carbon Dioxide 31 H mmol/L
(22-30)
BUN 23 H mg/dl
(9-20)
Creatinine 0.6 L mg/dL
(0.7-1.3)
Glucose 139 H mg/dl
(70-99)
Total Bilirubin 1.9 H mg/dl
(0.2-1.3)
Urine Ketones 1+ A
(Negative)
Leukocyte Esterase Rfl 1+ A
(Negative)
Urine Bacteria (Reflex) Moderate A
(Negative)
Urine Glucose 4+ A
(Negative)
Urine Albumin (Reflex) 1+ A
(Neg - Trace)
03/31/25 16:32
03/31/25 16:32
Vital Signs
Initial and Last Documented VS:
Initial Vital Signs
Pulse Resp Pulse Ox
80 24 97
03/31/25 15:52 03/31/25 15:52 03/31/25 15:52
Last Documented Vital Signs
Temp Pulse Resp BP Pulse Ox
97.9 F 73 18 157/69 96
04/01/25 15:00 04/01/25 15:00 04/01/25 15:00 04/01/25 15:00 04/01/25 15:00
MDM/Problems Addressed
Differential Diagnosis Includes:
Deconditioning electrolyte abnormality occult head trauma foot trauma noncompliance
MDM/Problems Addressed:
Bleeding from his right foot
Chronic conditions affecting care: DM, HTN, Arrhythmia, Neurological disorder and Psychiatric illness
Acute Exacerbation and/or Progression of Chronic Illness: HTN, Arrhythmia, Neurological disorder and Psychiatric illness
*Radiology
Radiology exam reviewed: radiology read reviewed
*Pulse Oximetry
SaO2: 100
Oxygen Mode of Delivery: Room air
Patient hypoxic: no
*EKG
Interpreted by ED Provider?: Yes
Interpretation: abnormal
Comparison EKG: no comparison EKG present
Heart Rate: 112
Rate: normal
Rhythm: a-fib
Ischemia: non-specific ST changes
*Patient Financial Services Manager Interpretation
Rate: normal
Interpretation: normal
Heart Rate: 112
Rhythm: a-fib
*Critical Care Note
Total Time (30-74mins, 75-104mins- exclusive of procedures): Not Applicable
Update Note
Update Note:
Update x-ray report from prior visit 2 weeks ago noted
PDMP noted
615, patient with urinary retention he has straight cath himself previously, will asked the nurse to straight cath him, check urinalysis, tells me he does not feel well he is unable to tell me what exactly is bothering him other than he has back
pain neck pain no fevers no vomiting
Labs are noted, will consult physical therapy case management apparently there are significant social stressors at home
Evaluation is right foot red warm swollen has avulsed the second nail no obvious fracture certainly high risk for infection if he is not infected now
ED Attending Note
-
Portions of this chart may have been created with voice recognition software.� Occasional wrong word or��sound alike� substitutions may have occurred due to the inherent limitations of voice recognition software.
Discharge Plan
Departure
Patient Disposition: Admit
Date of Disposition: 03/31/25
Time of Disposition: 18:23
Presentation/result/management discussed w/ accepting MD/DO: Hospitalist
Patient with high blood pressure during this ER visit?: Yes
Condition: Fair
Covid-19: Not Applicable
Discharge Problem:
Chronic pain, History of spinal cord injury, Paraplegia, Opioid dependence, uncomplicated, Cellulitis of foot associated with diabetes mellitus, Cellulitis of second toe of right foot
Interventions
Interventions:
*Risk Screen - Suicide Last Done: 03/31/25 15:58
*General Assessment Last Done: 03/31/25 15:58
*Neglect/Abuse Screening Last Done: 03/31/25 15:58
*ED- Fall Risk Assessment Last Done: 03/31/25 15:58
*ED COVID-19 Vaccine History Last Done: 03/31/25 15:58
*Nursing Disposition Last Done: 03/31/25 21:11
ED- Pulmonary Assessment Last Done: 03/31/25 21:11
ED-Psychological Assessment Last Done: 03/31/25 21:11
ED- Neurological Assessment Last Done: 03/31/25 16:06
ED- Cardiac Assessment Last Done: 03/31/25 19:03
ED Swallowing Screen Last Done: 03/31/25 16:13
Discharge Date and Time
Discharge Date/Time: 03/31/25 21:12
[2025-03-31 16:47] LABS: Hematocrit 41.8 % (39.0-52.0); Hemoglobin 14.0 g/dL (13.0-18.0); Mean Corp Hgb Conc. 33.5 g/dL (33.0-37.0); Mean Corpuscular Volume 89.9 fL (80.0-94.0); Nucleated Red Blood Cells % 0 % (-); Platelet Count 158 10^3/uL (130-400); Red Cell Dist. Width 12.3 % (11.5-14.5)
[2025-03-31 17:05] LABS: ALT (SGPT) 36 U/L (0-50); AST (SGOT) 33 U/L (17-59); Albumin 4.0 g/dl (3.5-5.0); Alkaline Phosphatase 87 U/L (38-126); Blood Urea Nitrogen 23 mg/dl (9-20); Calcium 8.9 mg/dl (8.4-10.2); Carbon Dioxide 31 mmol/L (22-30); Chloride 102 mmol/L (98-107); Estimated Creatinine Clearance > 125 ml/min; Glucose 139 mg/dl (70-99); Potassium 4.1 mmol/L (3.5-5.1); Sodium 138 mmol/L (135-145); Total Protein 6.6 g/dl (6.3-8.2); eGFR > 60.00
[2025-03-31] MEDS: ROXICODONE 15 MG PO ×2 (18:03→22:09)
[2025-03-31 18:51] LABS: Urine Character Clear (Clear)
--- NOTE | 2025-03-31 18:53 | HPS.HSE ---
Addendum entered and electronically signed by Margarita Choi MD 03/31/25 20:34:
This is an addendum to H&P written by Rianna Irene on 03/31/2025. �Patient seen and examined independent with [employer].
59-year-old male past medical history of spinal cord injury 1998, wheelchair-bound, atrial fibrillation on Eliquis, CHF, DVT, CAD with history of stent, bradycardia status post pacemaker, hypertension, hyperlipidemia, CVA with residual right-sided
weakness, thalamic bleeding, borderline diabetes, depression, seizure disorder, presenting with fall 2 weeks ago with pain in his back upper and lower back. �Had some bleeding from his right toe from from partially avulsed nail.
Vital signs normal. �Labs unremarkable apart from leukocytosis of 11. �Was retaining 900 cc on bladder scan.
CT head and cervical spine shows no acute abnormality.
Patient with back pain from fall 2 weeks ago at which time admitted [facility]. �Morphine given for pain. �Requested records from [facility] regarding trauma workup. �Case management for placement. �He did have some bleeding from his right
second toe from partially avulsed nail although foot does not appear infected. Wound care.
Bladder scan protocol.
Original Note:
Family Physician
-
Family Physician: NOT KNOW UNKNOWN - PT DOES
Chief Complaint
-
back pain
History of Present Illness
Patient 59-year-old male with past medical history of hypertension, hyperlipidemia, atrial fibrillation, CAD, CHF and paraplegia who presented to [facility] for evaluation of back pain. Patient reports a fall 5 days ago and multiple stays in multiple
hospitals since then. He reports that he fell out of wheelchair when walking the dog and landed on trash cans. He reports head strike then. Since fall he reports not feeling well, but unable to articulate actual discomfort. Patient son found patient
today with blood on right lower extremity, found to have opening to right second toe. Patient denies any current symptoms outside of back pain. Patient straight cath in ED for acute urinary retention, obtained 900cc urine.
Medical History
Past Medical History
Past Medical History: Reports Other
Additional Past Medical History:
hypertension
hyperlipidemia
atrial fibrillation
CAD
CHF
paraplegia
hx of CVA
seizure d/o
wheelchair/bed bound
chronic back pain with narc dependance
MDD
Past Surgical History: Reports Other
Additional Past Surgical History:
cardiac stent
spinal fusion
Social History
Tobacco: Former Smoker
Alcohol: None
Drug: None
Personal:
Living: With Family
Employment: Disabled
Family History
Family History: Not pertinent
Allergies / Home Medications
Allergies reflects when Allergies were last updated in [employer].
Home Medications with original date entered in [employer]
Allergy/Medication List:
Allergies
Allergy/AdvReac Type Severity Reaction Status Date / Time
gabapentin (From Neurontin) Allergy extreme Verified 12/06/23 16:31
weight gain
hydromorphone HCl (From Allergy confusion Verified 12/06/23 16:31
Dilaudid)
lisinopril Allergy Unknown,SEE Verified 12/06/23 16:31
BELOW
pregabalin Allergy Unknown,excessive Verified 12/06/23 16:31
weight gain
Home Medications
morphine 30 mg tablet,extended release 30 mg PO Q8H severe Pain 07/10/20
oxycodone 15 mg tablet 15 mg PO Q4HPRN PRN severe pains 07/10/20
empagliflozin 10 mg tablet (Jardiance) 10 mg PO DAILY@1300 Diabetes 05/20/22
furosemide 40 mg tablet 40 mg PO DAILY Fluid retention/Swelling 05/23/22
apixaban 5 mg tablet (Eliquis) 5 mg PO BID Blood Clot Prevention/Tx 08/11/23
atorvastatin 40 mg tablet 40 mg PO QPM High cholesterol 12/06/23
Review of Systems
-
History Source: Patient
Constitutional: Reports No Symptoms
EENT: Reports No Symptoms
Respiratory: Reports No Symptoms
Cardiac: Reports No Symptoms
Abdomen/GI: Reports No Symptoms
: Reports No Symptoms
Musculoskeletal: Reports Other (back pain )
Skin: Reports No Symptoms
Neurological: Reports No Symptoms
Endocrine: Reports No Symptoms
Hematologic/Lymphatic: Reports No Symptoms
Psych: Reports No Symptoms
Physical Exam
Vital Signs
Vital Signs
Temp Pulse Resp BP Pulse Ox
98.3 F 80 24 133/98 100
03/31/25 15:54 03/31/25 17:15 03/31/25 16:45 03/31/25 17:00 03/31/25 16:19
Physical Exam
General: Well Developed, Well Nourished, No Apparent Distress, Conversant and Morbidly Obese
HEENT: NormoCephalic, Moist mucous membranes and Atraumatic
Respiratory: Clear and Non Labored Respirations
Cardiac: S1/S2 and Regular Rhythm; No Murmur, Rub or Gallop
Breast: Deferred by me
GI: Soft, Non Tender, Non Distended and Normal Bowel Sounds; No Organomegaly
Rectal: Deferred by Provider
Genito-urinary: Deferred by me
Musculoskeletal: No Clubbing, No Cyanosis and No Edema
Skin: Warm and IV/Catheter Site
Neuro: Awake, AO x 3 and Nonfocal/grossly intact
Hematologic/Lymphatic: No Lymphadenopathy
Psych: Calm and Intact Judgment/Insight
Laboratory Results
-
03/31/25 16:32
03/31/25 16:32
Laboratory Results
Total Bilirubin 1.9 mg/dl (0.2-1.3) H 03/31/25 16:32
AST 33 U/L (17-59) 03/31/25 16:32
ALT 36 U/L (0-50) 03/31/25 16:32
Alkaline Phosphatase 87 U/L (38-126) 03/31/25 16:32
Data Reviewed
-
Diagnostic Radiology: Report Reviewed by me (Rt Foot: arge amount of soft tissue swelling especially involving the dorsal aspect of the right foot. No evidence for soft tissue air or radiopaque foreign body. No evidence for acute fracture or
dislocation. No radiographic findings to suggest osteomyelitis.)
CT Scan: Report Reviewed by me (Head: No evidence of acute intracranial abnormality.; C-spine: No evidence of acute fracture or dislocation. See above discussion.)
Lab Data: Labs Reviewed by me (WBC 11.1)
Impression/Plan
-
IMPRESSION/PLAN:
#chronic pain
#back pain
#s/p fall
#right second toe partially avulsed nail
Rt foot x-ray: Large amount of soft tissue swelling especially involving the dorsal aspect of the right foot. No evidence for soft tissue air or radiopaque foreign body.
No evidence for acute fracture or dislocation. No radiographic findings to suggest osteomyelitis.
C-Spine CT: No evidence of acute fracture or dislocation.
See above discussion.
Head CT: No evidence of acute intracranial abnormality.
- Admit to med/surg
- Case management
- Consult PT/OT
- request records from [facility] for recent stay s/p fall and back pain
- pain regimen
#acute urinary retention
straight cath for 900cc in ED
- bladder scan/straight cath protocol
#hypertension
- continue furosemide
#hyperlipidemia
- continue atorvastatin
#atrial fibrillation
- continue Eliquis
#chronic back pain with narc dependance
- continue morphine and oxycodone
#NIDDM
- continue Jardiance
#CAD
#CHF
#paraplegia
#hx of CVA
#seizure d/o
#wheelchair/bed bound
#MDD
Code status: full code
DVT prophylaxis: Eliquis
[2025-03-31] MEDS: MORPHINE ORAL SOLUTION 30 MG PO (19:10)
[2025-03-31 19:30] LABS: Urine Red Blood Cell 0-2 /HPF (0-2); Urine Squamous Cell 0-2 /LPF (Few)
--- NOTE | 2025-03-31 21:41 | PTCARENOTE ---
Pt arrived onto floor @2140. Pt AAOx1 and a pulley mortiser operator to the bed. Pt with no complaints of SOB at this time. Pt oriented to room and call childs; will continue to monitor
[2025-03-31] MEDS: ELIQUIS 5 MG PO (22:09)
[2025-04-01] MEDS: MS CONTIN (EXTENDED RELEASE) 30 MG PO ×3 (04:05→20:01)
[2025-04-01 04:19] VITALS: BMI 42.0
[2025-04-01 07:00] VITALS: BP 180/81
[2025-04-01] MEDS: ELIQUIS 5 MG PO ×2 (07:46→20:01)
[2025-04-01] MEDS: ROXICODONE 15 MG PO (07:46)
[2025-04-01] MEDS: LASIX 40 MG PO (07:46)
[2025-04-01 09:12] LABS: Blood Urea Nitrogen 19 mg/dl (9-20); Calcium 8.5 mg/dl (8.4-10.2); Carbon Dioxide 30 mmol/L (22-30); Chloride 105 mmol/L (98-107); Estimated Creatinine Clearance > 125 ml/min; Glucose 114 mg/dl (70-99); Potassium 3.7 mmol/L (3.5-5.1); Sodium 138 mmol/L (135-145); eGFR > 60.00
[2025-04-01 09:22] LABS: Hematocrit 38.7 % (39.0-52.0); Hemoglobin 13.0 g/dL (13.0-18.0); Mean Corp Hgb Conc. 33.6 g/dL (33.0-37.0); Mean Corpuscular Volume 90.4 fL (80.0-94.0); Platelet Count 138 10^3/uL (130-400); Red Cell Dist. Width 12.3 % (11.5-14.5)
--- NOTE | 2025-04-01 10:51 | CM ---
manager of investigations reviewed patient's chart and met with patient and patient was admitted under OBS, OBS letter provided and signed by patient, Mayito had SCI from 1998, CVA, patient lives with spouse who patient is currently from, patient's
spouse works for [employer], and son in a 2 story home with 1st floor set up, patient reports that he was able to transfer to w/c. [facility] Plan; Patient is for possible skilled placement.
PCP: Unknown
Pharmacy; [facility]
--- NOTE | 2025-04-01 12:46 | W.PN.HOSP.TC ---
Today's Communication/Plan
-
Assessment / Plan
Assessment / Plan
General: No Apparent Distress, Comfortable and Conversant
HEENT: NormoCephalic, Moist mucous membranes, Atraumatic
Respiratory: Clear and Non Labored Respirations
Cardiac: S1/S2 and Regular Rhythm; No Rub or Gallop
GI: Soft, Non Tender, Non Distended and Normal Bowel Sounds
Musculoskeletal: No Edema, no deformity
Skin: Warm and dry
: NO Locke
Neuro: Awake, Alert, Nonfocal/grossly intact
Psych: Calm and Intact Judgment/Insight
Mr. 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
right shoulder and back pain after a fall approximately 1 week prior to arrival. Apparently fell out of his wheelchair when taking his dog outside and landed on some trash cans with head strike. He was seen at [facility] for
treatment after the fall. Records from that visit are pending. He has some bleeding from his right toe with a nail that appears partially avulsed. In the ED he was found to be retaining 900 cc and was straight cathed. He was admitted for further
evaluation and management of acute on chronic back pain and acute urinary retention.
Acute on chronic pain:
- Acute pain after fall out of his wheelchair with head strike
- Initial post fall evaluation was done at [facility], records pending
- No acute abnormalities on imaging of head, C-spine, or foot although he does have a partially avulsed toenail
- Continue home pain medications
- He is able to transfer on his own Internet of his wheelchair, should be evaluated by PT/OT after recent fall, recommendations regarding SNF pending
Acute urinary retention:
- He reports this does happen to him infrequently after spinal cord injury
- Was straight cathed here for 900 cc
- Will continue bladder scans
- Renal function normal
A-fib:
- Currently rate controlled
- Continue anticoagulation with Eliquis
DVT prophylaxis: Eliquis
CODE STATUS: Full code
Total time spent on today's encounter was 42 minutes
Anticipated Discharge: 24 - 48 hours
Subjective/Interval History
-
Date of Service: April 01, 2025
Patient was seen and examined at bedside this morning. Complains of right shoulder pain. Remains clinically stable. Awaiting PT/OT eval and possible SNF placement.
Objective Data
-
Labs:
Laboratory Results
04/01/25
08:07
WBC 8.3
Hgb 13.0
Hct 38.7 L
Plt Count 138
Sodium 138
Potassium 3.7
Chloride 105
Carbon Dioxide 30
BUN 19
Creatinine 0.6 L
Glucose 114 H
Calcium 8.5
Vital Signs:
Vital Signs
Temp Pulse Resp BP Pulse Ox
98.8 F 68 18 180/81 94
04/01/25 07:00 04/01/25 07:46 04/01/25 07:00 04/01/25 07:46 04/01/25 07:00
Review of Systems
-
History Source: Patient
All other systems: Reviewed and negative
Musculoskeletal: Reports Joint Pain (Right shoulder pain.)
Physical Exam
-
General: No Apparent Distress
[2025-04-01] MEDS: FARXIGA 10 MG PO (13:09)
--- NOTE | 2025-04-01 13:19 | WOUNDNOTE ---
R GREAT AND 2ND TOE PLANTAR
--- NOTE | 2025-04-01 13:20 | WOUNDNOTE ---
R 2ND TOE NAIL AVULSION
--- NOTE | 2025-04-01 13:22 | WOUNDNOTE ---
L MEDIAL LOWER LEG
--- NOTE | 2025-04-01 13:23 | WOUNDNOTE ---
L POSTERIOR THIGH/BUTTOCK CREASE
--- NOTE | 2025-04-01 13:23 | WOUNDNOTE ---
POSTERIOR LEGS AND HEELS
--- NOTE | 2025-04-01 13:24 | WOUNDNOTE ---
L BUTTOCKS AND ISCHIUM
--- NOTE | 2025-04-01 13:30 | WOUNDNOTE ---
SHARON RN note: Patient admitted with cellulitis of R foot/toe.
See H&P for complete history. Patient reports he lives at home with his whom he is from and son. Patient states he does not get any help from his family, has to do own care. Manages to transfer from hospital bed to motorized w/c via
sliding board. Recent fall out of chair, patient states belt broke while moving.
PMH: a fib, CAD, CHF, CVA with R sided weakness, HTN, cellulitis, paraplegic, spinal stenosis, seizure disorder, WC bound, chronic back pain narcotic dependent, cardiac stent, failed spinal fusion, former smoker, stasis dermatitis,
lymphedema,08/30/22 bilateral aortoiliac angiogram and balloon dilation, cholecystectomy. 10/05/23 arterial Doppler R YASMANY 1.05, R toe 1.40; L YASMANY .83, L toe .68. 05/23/22 venous ultrasound nonocclusive thrombosis R peroneal vein. Patient on Plavix.
Patient saw Dr. Locke as an outpatient on 10/05/23 whose note mentions lymphedema, continue compression and leg elevation, follow up in 1 year.
Wound Location and type/assessment: Patient known to service, admitted with: Bilateral venous leg ulcers and multiple abrasions on R knee and R toes/dorsal foot. Patient reports he was on floor for half an hour before help arrived, dragged feet on
floor. R 2nd toe nail avulsion with pink base, scant drainage. Dry eschar on plantar R great toe and dried up blood/scabs remainder of toes. Patient recently having difficulty maintaining hygiene as shower broken and has no help. Has not been using
rojas wraps on legs since wounds have healed. Legs dependent when in W/C but patient states he gets in bed for 4 hrs daily and watches movies to elevate legs. L medial thigh with fungal appearing rash, attempts to use urinal but pads saturated with
urine when turned. Sacrum and heels are intact. L buttock and ischium with stage 2 PI's vs shearing from shifting and sitting in wheelchair. Patient has an offloading cushion on wheelchair but is old he states. diffuse erythema le's, +2-3 LE edema.
Patient assists with turning, refused air mattress, agreed to try air overlay.
Appetite: fair-good. Encouraged protein in diet.
Pressure redistribution devices in place: Versacare Accumax. NARINDER Cuevas will apply air overlay provided when able. Pillows placed under each leg to elevate and offload heels.
Plan: Local wound care applied to R toes/foot and lower legs. Rojas wraps applied knee high. foams applied to heels to protect. Silicone foam applied to L buttock and ischium. Will order fungal powder for skin folds and L thigh. Recommend clean legs
and feet wounds with Vashe, then topical silver gel(provided by wound nurse) to abrasions and leg ulcers daily with dry dressing. Will confirm orders with hospitalist and update wound care. Instructed patient pressure injury prevention measures,
states he understands. Care plan to be updated, nurse aware of the above and will follow as needed.
Note to case management of equipment requested for discharge: VN for wound care and air mattress if snf.
Recommend follow up at wound care center upon discharge.
[2025-04-01 15:00] VITALS: BP 157/69
[2025-04-01] MEDS: LIPITOR 40 MG PO (17:15)
[2025-04-01] MEDS: DESENEX/MITRAZOL/ZEASORB 1 APPLIC TOPICAL (20:01)
[2025-04-01 23:00] VITALS: BP 148/72
[2025-04-02 03:04] VITALS: BMI 42.4
[2025-04-02] MEDS: MS CONTIN (EXTENDED RELEASE) 30 MG PO ×3 (03:04→19:38)
[2025-04-02 07:00] VITALS: BP 122/69
[2025-04-02] MEDS: LASIX 40 MG PO (07:32)
[2025-04-02] MEDS: ELIQUIS 5 MG PO ×2 (07:32→19:38)
[2025-04-02] MEDS: DESENEX/MITRAZOL/ZEASORB 1 APPLIC TOPICAL ×2 (07:33→19:39)
[2025-04-02] MEDS: ROXICODONE 15 MG PO (08:46)
[2025-04-02 09:57] VITALS: BP 133/61; PULSE 89
--- NOTE | 2025-04-02 10:09 | CM ---
senior quality manager spoke with patient and plan is for skilled placement, options reviewed with patient, patient made aware the he will be limited due to insurance on skilled options. [facility]
and [facility].
Plan; Skilled placement.
[2025-04-02] MEDS: FARXIGA 10 MG PO (13:01)
--- NOTE | 2025-04-02 13:42 | W.PN.HOSP.TC ---
Today's Communication/Plan
-
Assessment / Plan
Assessment / Plan
General: No Apparent Distress, Comfortable and Conversant
HEENT: NormoCephalic, Moist mucous membranes, Atraumatic
Respiratory: Clear and Non Labored Respirations
Cardiac: S1/S2 and Regular Rhythm; No Rub or Gallop
GI: Soft, Non Tender, Non Distended and Normal Bowel Sounds
Musculoskeletal: No Edema, no deformity
Skin: Warm and dry
: NO Locke
Neuro: Awake, Alert, bilateral lower extremity weakness
Psych: Calm and Intact Judgment/Insight
Mr. 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
right shoulder and back pain after a fall approximately 1 week prior to arrival. Apparently fell forward out of his wheelchair when taking his dog outside and landed on pavement with head strike. He was seen at [facility] for
treatment after the fall. Records from that visit are pending. He has some bleeding from his right toe with a nail that appears partially avulsed. In the ED he was found to be retaining 900 cc and was straight cathed. He was admitted for further
evaluation and management of acute on chronic back pain and acute urinary retention.
Acute on chronic pain:
- Acute pain after fall out of his wheelchair with head strike
- Initial post fall evaluation was done at [facility], records show all imaging done at [facility] revealed no acute fractures, however pelvic imaging was not done but has been ordered now
- Pelvic x-ray shows no acute fractures but does show mild arthropathy bilaterally
- No acute abnormalities on imaging of head, C-spine, or foot although he does have a partially avulsed toenail
- Continue home pain medications
- He is able to transfer on his own Internet of his wheelchair, to be evaluated by PT/OT, recommendations regarding SNF pending
Acute urinary retention:
- He reports this does happen to him infrequently after spinal cord injury
- Was straight cathed here for 900 cc
- Will continue bladder scans
- Renal function normal
- Currently voiding appropriately
A-fib:
- Currently rate controlled
- Continue anticoagulation with Eliquis
DVT prophylaxis: Eliquis
CODE STATUS: Full code
Total time spent on today's encounter was 44 minutes
Anticipated Discharge: 24 - 48 hours
Subjective/Interval History
-
Date of Service: April 02, 2025
Patient was seen and examined at bedside this morning. Records from [facility] arrived and imaging done there showed no evidence of acute fractures. No pelvic imaging was done however which has been ordered now.
Objective Data
-
Vital Signs:
Vital Signs
Temp Pulse Resp BP Pulse Ox
100.3 F 63 18 123/75 93
04/02/25 07:00 04/02/25 07:32 04/02/25 07:00 04/02/25 07:32 04/02/25 07:00
I&O
04/01/25 04/02/25 04/03/25
06:59 06:59 06:59
Intake Total 0 / 1920
Output Total 300 / 300
Balance 1620 / 1620
Review of Systems
-
History Source: Patient
All other systems: Reviewed and negative
Musculoskeletal: Reports Joint Pain (Right hip pain)
Physical Exam
-
General: No Apparent Distress
[2025-04-02 16:08] VITALS: BP 169/83
[2025-04-02] MEDS: LIPITOR 40 MG PO (18:07)
[2025-04-02 22:58] VITALS: BP 141/70
[2025-04-03] MEDS: ROXICODONE 15 MG PO (01:39)
[2025-04-03 03:56] VITALS: BMI 42.3
[2025-04-03] MEDS: MS CONTIN (EXTENDED RELEASE) 30 MG PO ×3 (04:20→20:04)
[2025-04-03 08:20] VITALS: BP 190/81
[2025-04-03] MEDS: ELIQUIS 5 MG PO ×2 (08:43→20:04)
[2025-04-03] MEDS: LASIX 40 MG PO (08:44)
[2025-04-03] MEDS: DESENEX/MITRAZOL/ZEASORB 1 APPLIC TOPICAL ×2 (08:48→20:06)
[2025-04-03 09:33] VITALS: BP 150/78
--- NOTE | 2025-04-03 09:46 | CM ---
Addendum entered by Anu Monge 04/03/25 16:02:
Authorization for [facility]. Pending auth #[id number]. Bed availability for Monday
[place]
Admitting Karina Barahona NPI # [id number]
Requested 7 days
Insurance Info
[employer] [phone]

Status of claim [id number]
[facility]
Report #[phone]

Addendum entered by Anu Monge 04/03/25 13:37:
Pt selected [facility]. Liaison confirmed they would have a bed for him tomorrow. Will attempt to get authorization today. Pt made aware of plan.
Plan: D/C to [facility]
Original Note:
Reviewed chart. Met with pt bedside. Informed pt that all four SNF accepted him but he is having difficulty choosing a facility due to a bad experience in the past. Has asked to speak to Kelly Hernandez CM to assist him with the decision.
Plan: DC to SNF
[2025-04-03] MEDS: COZAAR 25 MG PO (11:22)
[2025-04-03] MEDS: FARXIGA 10 MG PO (12:55)
--- NOTE | 2025-04-03 13:53 | W.PN.HOSP.TC ---
Today's Communication/Plan
-
Assessment / Plan
Assessment / Plan
General: No Apparent Distress, Comfortable and Conversant
HEENT: NormoCephalic, Moist mucous membranes, Atraumatic
Respiratory: Clear and Non Labored Respirations
Cardiac: S1/S2 and Regular Rhythm; No Rub or Gallop
GI: Soft, Non Tender, Non Distended and Normal Bowel Sounds
Musculoskeletal: No Edema, no deformity
Skin: Warm and dry
: NO Locke
Neuro: Awake, Alert, paraplegic
Psych: Calm and Intact Judgment/Insight
Mr. 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
right shoulder and back pain after a fall approximately 1 week prior to arrival. Apparently fell forward out of his wheelchair when taking his dog outside and landed on pavement with head strike. He was seen at [facility] for
treatment after the fall. Records from that visit are pending. He has some bleeding from his right toe with a nail that appears partially avulsed. In the ED he was found to be retaining 900 cc and was straight cathed. He was admitted for further
evaluation and management of acute on chronic back pain and acute urinary retention.
Acute on chronic pain:
- Acute pain after fall out of his wheelchair with head strike
- Initial post fall evaluation was done at [facility], records show all imaging done at [facility] revealed no acute fractures, however pelvic imaging was not done but has been ordered now
- Pelvic x-ray shows no acute fractures but does show mild arthropathy bilaterally
- No acute abnormalities on imaging of head, C-spine, or foot although he does have a partially avulsed toenail
- Continue home pain medications
- He is able to transfer on his own in and out of his wheelchair, PT OT recommending SNF, placement pending
Acute urinary retention:
- He reports this does happen to him infrequently after spinal cord injury
- Was straight cathed here for 900 cc
- Will continue bladder scans
- Renal function normal
- Currently voiding appropriately
A-fib:
- Currently rate controlled
- Continue anticoagulation with Eliquis
DVT prophylaxis: Eliquis
CODE STATUS: Full code
Total time spent on today's encounter was 42 minutes
Anticipated Discharge: 24 - 48 hours
Subjective/Interval History
-
Date of Service: April 03, 2025
Patient was seen and examined at bedside this morning. No acute events overnight. Awaiting SNF placement.
Objective Data
-
Vital Signs:
Vital Signs
Temp Pulse Resp BP Pulse Ox
98.5 F 62 16 150/78 96
04/03/25 08:20 04/03/25 08:20 04/03/25 08:20 04/03/25 09:33 04/03/25 08:20
I&O
04/02/25 04/03/25 04/04/25
06:59 06:59 06:59
Intake Total 1920 / 1920 960 / 960
Output Total 300 / 300 425 / 425 200 / 200
Balance 1620 / 1620 535 / 535 -200 / -200
Review of Systems
-
History Source: Patient
All other systems: Reviewed and negative
Physical Exam
-
General: No Apparent Distress
[2025-04-03 15:43] VITALS: BP 142/72
[2025-04-03] MEDS: PROZAC 20 MG PO (16:50)
[2025-04-03] MEDS: LIPITOR 40 MG PO (18:14)
[2025-04-03 23:00] VITALS: BP 129/71
[2025-04-04] MEDS: MS CONTIN (EXTENDED RELEASE) 30 MG PO ×2 (04:15→11:02)
[2025-04-04 06:00] VITALS: BMI 41.4
[2025-04-04] MEDS: COZAAR 25 MG PO (07:42)
[2025-04-04] MEDS: ELIQUIS 5 MG PO (07:42)
[2025-04-04] MEDS: PROZAC 20 MG PO (07:42)
[2025-04-04] MEDS: LASIX 40 MG PO (07:42)
[2025-04-04] MEDS: DESENEX/MITRAZOL/ZEASORB 1 APPLIC TOPICAL (07:44)
[2025-04-04 07:47] VITALS: BP 157/76
[2025-04-04] MEDS: ROXICODONE 15 MG PO ×2 (07:55→15:34)
--- NOTE | 2025-04-04 10:30 | CM ---
Addendum entered by Anu Monge 04/04/25 15:50:
Pt states has credit card information to pay for wheelchair van. He is unable to reach her. CM called and left message for .
Addendum entered by Anu Monge 04/04/25 14:20:
Received insurance auth for [facility] for 7 days.
[facility]
Report #[phone]

Original Note:
Reviewed chart. As of now, the insurance authorization for SNF placement is still pending. Will check again later today. Pt will need WC van for transport to SNF.
Plan: SNF placement with [facility] if approved by insurance company
[2025-04-04] MEDS: FARXIGA 10 MG PO (12:19)
--- NOTE | 2025-04-04 14:32 | W.PN.HOSP.TC ---
Today's Communication/Plan
-
Assessment / Plan
Assessment / Plan
General: No Apparent Distress, Comfortable and Conversant
HEENT: NormoCephalic, Moist mucous membranes, Atraumatic
Respiratory: Clear and Non Labored Respirations
Cardiac: S1/S2 and Regular Rhythm; No Rub or Gallop
GI: Soft, Non Tender, Non Distended and Normal Bowel Sounds
Musculoskeletal: No Edema, no deformity
Skin: Warm and dry
: NO Locke
Neuro: Awake, Alert, paraplegic
Psych: Calm and Intact Judgment/Insight
Mr. 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
right shoulder and back pain after a fall approximately 1 week prior to arrival. Apparently fell forward out of his wheelchair when taking his dog outside and landed on pavement with head strike. He was seen at [facility] for
treatment after the fall. Records from that visit are pending. He has some bleeding from his right toe with a nail that appears partially avulsed. In the ED he was found to be retaining 900 cc and was straight cathed. He was admitted for further
evaluation and management of acute on chronic back pain and acute urinary retention.
Acute on chronic pain:
- Acute pain after fall out of his wheelchair with head strike
- Initial post fall evaluation was done at [facility], records show all imaging done at [facility] revealed no acute fractures, however pelvic imaging was not done but has been ordered now
- Pelvic x-ray shows no acute fractures but does show mild arthropathy bilaterally
- No acute abnormalities on imaging of head, C-spine, pelvis, or foot
- Continue home pain medications
- He is able to transfer on his own in and out of his wheelchair, PT OT recommending SNF, placement pending
- Medically stable for discharge to SNF
Acute urinary retention:
- He reports this does happen to him infrequently after spinal cord injury
- Was straight cathed here for 900 cc
- Will continue bladder scans
- Renal function normal
- Currently voiding appropriately
A-fib:
- Currently rate controlled
- Continue anticoagulation with Eliquis
DVT prophylaxis: Eliquis
CODE STATUS: Full code
Total time spent on today's encounter was 35 minutes
Anticipated Discharge: 24 - 48 hours
Subjective/Interval History
-
Date of Service: April 04, 2025
Patient was seen and examined at bedside this morning. Clinically stable. Awaiting SNF placement.
Objective Data
-
Vital Signs:
Vital Signs
Temp Pulse Resp BP Pulse Ox
98.0 F 64 18 157/76 97
04/04/25 07:47 04/04/25 07:47 04/04/25 07:47 04/04/25 07:47 04/04/25 07:47
I&O
04/03/25 04/04/25 04/05/25
06:59 06:59 06:59
Intake Total 960 / 960 480 / 480
Output Total 425 / 425 1250 / 1250 600 / 600
Balance 535 / 535 -770 / -770 -600 / -600
Review of Systems
-
History Source: Patient
All other systems: Reviewed and negative
Physical Exam
-
General: No Apparent Distress
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
--- NOTE | 2025-04-04 14:47 | W.DCSUMMARY ---
Discharge Summary
Discharge Data
Date of Admission: 04/04/25
Date of Discharge: 04/04/25
Total time spent discharging patient (in min): 40
-
Pending Results: No
Hospital Course
Mr. 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
right shoulder and back pain after a fall approximately 1 week prior to arrival. Apparently fell forward out of his wheelchair when taking his dog outside and landed on pavement with head strike. He was seen at [facility] for
treatment after the fall. Records from that visit are pending. He has some bleeding from his right toe with a nail that appears partially avulsed. In the ED he was found to be retaining 900 cc and was straight cathed. He was admitted for further
evaluation and management of acute on chronic back pain and acute urinary retention.
Records from [facility] showed the imaging done at their facility revealed no acute pathology. Imaging at this facility also showed no acute pathology including fractures or dislocations. He was continued on his home pain
medication regimen. He was evaluated by PT/OT who recommended SNF which has been arranged. He did have an episode of acute urinary retention which has since resolved. He reports this does happen to him from time to time since his spinal cord
injury. He is currently avoiding spontaneously. He was started on low-dose Prozac for depression. He is medically stable for discharge to SNF. He will to follow-up with his primary care physician and with his psychiatrist for ongoing evaluation
and adjustments to his Prozac dosage as needed.
Discharge Plan
-
Patient Disposition: Residential/SNF
Discharge Diagnosis/Procedures: Acute on chronic pain, fall with head strike, acute urinary retention (now resolved)
Activity Restrictions/Additional Instructions:
Wound Care Instructions
R toes/foot and lower legs: clean/soak legs and feet with Vashe, then apply topical silver gel Normlgel Ag (provided by wound nurse) to abrasions and leg ulcers daily, adaptic and dry dressing daily and prn drainage.
moisturize legs daily with Aquaphor
Legs: lobo wraps knee high daily remove at hs
L medial thigh and skin folds fungal powder bid
L buttocks/ischium: clean with soap and water, silicone foam change daily and prn soilage.
Air mattress if going to SNF
offloading cushion to wheelchair, recommend ROHO cushion
Follow up at wound care center call for an appointment.
Mr. 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
right shoulder and back pain after a fall approximately 1 week prior to arrival. Apparently fell forward out of his wheelchair when taking his dog outside and landed on pavement with head strike. He was seen at [facility] for
treatment after the fall. Records from that visit are pending. He has some bleeding from his right toe with a nail that appears partially avulsed. In the ED he was found to be retaining 900 cc and was straight cathed. He was admitted for further
evaluation and management of acute on chronic back pain and acute urinary retention.
Records from [facility] showed the imaging done at their facility revealed no acute pathology. Imaging at this facility also showed no acute pathology including fractures or dislocations. He was continued on his home pain
medication regimen. He was evaluated by PT/OT who recommended SNF which has been arranged. He did have an episode of acute urinary retention which has since resolved. He reports this does happen to him from time to time since his spinal cord
injury. He is currently avoiding spontaneously. He was started on low-dose Prozac for depression. He is medically stable for discharge to SNF. He will to follow-up with his primary care physician and with his psychiatrist for ongoing evaluation
and adjustments to his Prozac dosage as needed.
Referrals:
UNKNOWN - PT DOES,NOT KNOW [Family Provider]
Prescriptions:
New
fluoxetine 20 mg Capsule
20 mg PO DAILY 30 Days Qty: 30 0RF
Continued
oxycodone 15 MG tablet
15 mg PO Q4HPRN PRN (Reason: severe pains)
morphine 30 MG tablet extended release
30 mg PO Q8H
Jardiance 10 mg Tablet
10 mg PO DAILY@1300
furosemide 40 MG tablet
40 mg PO DAILY
Eliquis 5 mg tablet
5 mg PO BID
atorvastatin 40 mg tablet
40 mg PO QPM
Discharge Orders:
Discharge Patient (As Directed); Ordered 04/04/25
Ordered By: Jani Valadez
Discharge Date and Time
Print Language: SPANISH
[2025-04-04 16:06] VITALS: BP 118/75
[2025-04-04] MEDS: LIPITOR 40 MG PO (17:45)
== END 2025-04-04 18:40 | DRG 92 ==
LOC: 4 WEST ACU 09:04
PROVIDERS: Nurse Practitioner Family; ADMITTING PHYSICIAN Hospitalist; ATTENDING PHYSICIAN Internal Medicine; CONSULT PHYSICIAN Psychiatry & Neurology Psychiatry; EMERGENCY PHYSICIAN Emergency Medicine
DX: G89.29 Other chronic pain (principal); F11.20 Opioid dependence, uncomplicated; G82.20 Paraplegia, unspecified; I50.32 Chronic diastolic (congestive) heart failure; I69.351 Hemiplegia and hemiparesis following cerebral infarction affecting right dominant side; Z68.41 Body mass index [BMI] 40.0-44.9, adult; W05.0XXA Fall from non-moving wheelchair, initial encounter; Z99.3 Dependence on wheelchair; Z79.01 Long term (current) use of anticoagulants; Z95.0 Presence of cardiac pacemaker; G40.909 Epilepsy, unspecified, not intractable, without status epilepticus; I11.0 Hypertensive heart disease with heart failure; I25.10 Atherosclerotic heart disease of native coronary artery without angina pectoris; Z95.5 Presence of coronary angioplasty implant and graft; E66.9 Obesity, unspecified; E78.00 Pure hypercholesterolemia, unspecified; F32.9 Major depressive disorder, single episode, unspecified; F43.10 Post-traumatic stress disorder, unspecified; I48.91 Unspecified atrial fibrillation; E11.628 Type 2 diabetes mellitus with other skin complications; L03.031 Cellulitis of right toe; M48.00 Spinal stenosis, site unspecified; Z79.84 Long term (current) use of oral hypoglycemic drugs; Z79.899 Other long term (current) drug therapy; Z87.891 Personal history of nicotine dependence; Z98.1 Arthrodesis status
CPT/HCPCS: 70450; 72125; 72190; 73630; 80048; 80053; 81003; 81015; 85025; 85027; 87070; 87086; 93005; 97163; 97167; 97530; 97535; 99285